=== PATIENT | male | born 1965 | race Two or more races ===

== ENCOUNTER 2022-02-28 05:00 | Day surgery (SDC) | payer OTHER | END 2022-02-28 13:30 | disposition home or self-care (01) | LOC: CIR.AMB 05:00 | PROVIDERS: ATTEND Colon & Rectal Surgery | DX: D12.5 Benign neoplasm of sigmoid colon (principal); Z20.822 Contact with and (suspected) exposure to COVID-19; E03.9 Hypothyroidism, unspecified ==

== ENCOUNTER 2022-08-01 07:56 | Day surgery (SDC) | payer OTHER | END 2022-08-01 12:10 | disposition home or self-care (01) | LOC: AMB-ENDOS 07:56 | PROVIDERS: ATTEND Colon & Rectal Surgery | DX: K63.5 Polyp of colon (principal); Z86.010 Personal history of colon polyps; Z20.822 Contact with and (suspected) exposure to COVID-19; K64.4 Residual hemorrhoidal skin tags ==